=== PATIENT | female | born 1960 | race African-American/Black ===

== ENCOUNTER → 2017-10-29 | Outpatient (CLI) | payer BC | END | disposition home or self-care (01) | LOC: PROCWHC3 14:21 | PROVIDERS: ATTEND Nurse Practitioner Family | DX: B34.9 Viral infection, unspecified (principal) | CPT/HCPCS: 87502 ==

== ENCOUNTER → 2018-08-25 | Outpatient (CLI) | payer BC ==
--- NOTE | 2018-08-26 12:04 | MM ---
Reason for exam: screening (asymptomatic). Last mammogram was performed 1 year ago. History: Patient is postmenopausal and is nulliparous. Family history of breast cancer in maternal aunt at age 50. Physical Findings: A clinical breast exam by your physician is recommended on an annual basis and results should be correlated with mammographic findings. MG 3D Screening Mammo W/Cad Bilateral CC and MLO view(s) were taken. Prior study comparison: August 15, 2017, bilateral MG 3d screening mammo w/cad. September 20, 2015, bilateral MG 3d screening mammo w/cad. The breast tissue is extremely dense which could obscure a lesion on mammography. There is a stable circumscribed left upper outer quadrant middle depth mass. There are similar appearing bilateral calcifications. No suspicious abnormality. No significant changes when compared with prior studies. ASSESSMENT: Benign, BI-RAD 2 RECOMMENDATION: Routine screening mammogram of both breasts in 1 year.
== END | disposition home or self-care (01) ==
LOC: RADMAMWWP 09:14
PROVIDERS: ATTEND Obstetrics & Gynecology
DX: Z12.31 Encounter for screening mammogram for malignant neoplasm of breast (principal)
CPT/HCPCS: 77063; 77067